=== PATIENT | female | born 1965 | race Caucasian/White ===

== ENCOUNTER → 2024-03-18 15:27 | Outpatient (REF) | payer BC, SELFPAY | LOC: HWWDC 15:27 | PROVIDERS: ATTENDING PHYSICIAN Physician Assistant Medical | DX: Z12.31 Encounter for screening mammogram for malignant neoplasm of breast (principal) | CPT/HCPCS: 77063; 77067 ==

== ENCOUNTER → 2025-02-13 12:35 | Outpatient (REF) | payer BC, SELFPAY | LOC: HWRAD 12:35 | PROVIDERS: ATTENDING PHYSICIAN Otolaryngology; FAMILY PHYSICIAN Physician Assistant Medical | DX: E04.1 Nontoxic single thyroid nodule (principal) | CPT/HCPCS: 76536 ==